=== PATIENT | female | born 1955 | race Caucasian/White ===

== ENCOUNTER 2016-05-30 07:32 | Inpatient (IN) | payer BC, OTHER ==
[2016-05-30 07:43] VITALS: BMI 35.2
[2016-05-30] MEDS ORDERED: HYDROCHLOROTHIAZIDE 12.5 MG CAPSULE (FP) PO ONE (08:02)
[2016-05-30] MEDS ORDERED: VALSARTAN 160 MG TABLET (UD) PO ONE (08:02)
--- NOTE | 2016-05-30 08:05 | PDOC ---
History of Present Illness - General Chief Complaint: Cold Symptoms Stated Complaint: CONGESTION Time Seen by Provider: 05/30/16 07:46 History Source: Patient Exam Limitations: No Limitations - History of Present Illness Initial Comments: 05/30/16 08:03 Patient is a 61 year old female with PMH of HTN, DM, HLD who presents to ED with cough for 1 week. Patient states she has multiple sick contacts in her home for the last few weeks. She developed a cough 1 week ago that has become productive with yellow-brown sputum. Coughing has become more frequent and the patient developed right sided chest pain that is entirely reproducible by movement, coughing & deep inspiration. Pain is intermittent and does not radiate. Patient also notes a mild fever 100.3, chills alongside some vomiting after heavy coughs. Denies diarrhea, constipation, abdominal pain. Denies shortness of breath or difficulty breathing. Denies flu shot this year and unsure about pneumonia vaccine. Past History - Travel Traveled outside of the country in the last 30 days: No Close contact w/someone who was outside of country & ill: No - Past Medical History Allergies/Adverse Reactions: Allergies Allergy/AdvReac Type Severity Reaction Status Date / Time No Known Allergies Allergy Verified 05/30/16 07:33 Home Medications: Ambulatory Orders Insulin Aspart Prot/Insuln Asp [Novolog Mix 70-30 Flexpen Syrn] 35 unit SQ BID 08/17/15 Insulin Glargine,Hum.rec.anlog [Toujeo Solostar] 110 unit SQ DAILY 08/17/15 Valsartan/Hydrochlorothiazide [Valsartan-Hctz 160-12.5 mg Tab] 1 each PO DAILY 08/18/15 Anemia: No Asthma: No Cancer: No Cardiac Disorders: Yes (ASHD, BASED ON CARDIAC CATH) CVA: No COPD: No CHF: No Dementia: No Diabetes: Yes (IDDM) GI Disorders: No Disorders: No HTN: Yes Hypercholesterolemia: Yes Liver Disease: No Seizures: No Thyroid Disease: No - Surgical History Appendectomy: Yes Orthopedic Surgery: Yes (RIGHT ANKLE FRACTURE SURGERY) - Family Disease History Comment:: 05/30/16 08:07 grandchildren & children sick at home also - Reproductive History LMP comment: 10+ years ago - Immunization History Immunization Up to Date: Yes (no flu) - Psycho/Social/Smoking Cessation Hx Anxiety: No Suicidal Ideation: No Smoking History: Former smoker Have you smoked in the past 12 months: No If you are a former smoker, when did you quit?: 2000 Information on smoking cessation initiated: No Hx Alcohol Use: No Drug/Substance Use Hx: No Substance Use Type: None Review of Systems - Review of Systems Able to Perform ROS?: Yes Is the patient limited Kazakh proficient: No Constitutional: Yes: Chills, Fever, Malaise. No: Night Sweats HEENTM: Yes: Nose Congestion. No: Blurred Vision, Ear Discharge, Throat Pain, Throat Swelling Respiratory: Yes: Productive cough. No: Shortness of Breath, SOB with Exertion , Wheezing, Hemoptysis Cardiac (ROS): Yes: Chest Tightness (with coughing). No: Irregular Heart Rate, Lightheadedness, Palpitations ABD/GI: Yes: Nausea, Vomiting. No: Abdominal Distended, Constipated, Diarrhea, Abdominal cramping : No: Burning, Dysuria, Incontinence Integumentary: No: Bruising, Change in Color, Erythema Neurological: No: Headache, Numbness, Paresthesia, Seizure, Unsteady Gait All Other Systems: Reviewed and Negative *Physical Exam - Vital Signs Last Vital Signs Temp Pulse Resp BP Pulse Ox 98.5 F 94 H 20 192/90 95 05/30/16 07:34 05/30/16 07:34 05/30/16 07:34 05/30/16 07:34 05/30/16 07:34 - Physical Exam General Appearance: Yes: Nourished, Appropriately Dressed, Obese HEENT: positive: EOMI, BREANNA, Normal ENT Inspection, Pharynx Normal Neck: positive: Trachea midline, Normal Thyroid, Supple Respiratory/Chest: positive: Chest Tender, Other (Coughing during examination, otherwise normal breath sounds without wheezing, crackles or stridor) Cardiovascular: positive: Regular Rhythm, Regular Rate, S1, S2 Gastrointestinal/Abdominal: positive: Normal Bowel Sounds, Flat, Soft Musculoskeletal: positive: Normal Inspection Extremity: positive: Normal Capillary Refill, Normal Inspection, Normal Range of Motion Integumentary: positive: Normal Color, Dry, Warm Neurologic: positive: nutrition internship II-XII NML intact, Fully Oriented, Alert, Normal Mood/ Affect, Motor Strength 5/5 Heart Score/ECG Review - History History: Slightly suspicious - Electrocardiogram EKG: Non specific repolarization disturbance - Age Age: 45-65 - Risk Factors Risk Factors Heart Score: Yes Hx Hypercholesterolemia, Yes Hx Hypertension, Yes Hx Diabetes Based on the list above the patient has:: >/=3 risk factors or Hx atherosclerotic disease - Troponin Troponin: </= normal limit - Score Heart Score - Total: 4 - ECG Impressions Normal ECG: No Comment:: 05/30/16 08:20 IMPRESSION: Normal Sinus Rhythm, Nonspecific Twave abnormality (by my read, T- wave inversion in inferolateral leads) ED Treatment Course - LABORATORY CBC & Chemistry Diagram: 05/30/16 08:40 05/30/16 08:40 - RADIOLOGY Radiology Studies Ordered: Category Date Time Status CXRPORT [CHEST X-RAY PORTABLE*] [RAD] Stat Radiology 05/30/16 07:52 Ordered Medical Decision Making - Medical Decision Making 05/30/16 08:11 Based on physical exam findings, suspect URI. Pneumonia, influenza, bronchitis on differential list. Ordered CBC, CMP, Influenza swab, cardiac profile, EKG & chest XRay. Patient hypertensive at present but states she forgot to take her antihypertensives last night. Will give Valsartan/HCTZ combo now and reassess. 05/30/16 08:22 Heart Score of 4. CURB65 score is 1. CXR shows RUL infiltrate. Will start patient on antibiotics & will likely require observation for multiple troponins. 05/30/16 10:11 Patient will likely need placement in observation for serial troponins. Will discuss case with Dr Rose. 05/30/16 10:[address] Lockett who agrees to place patient in Observation telemetry for serial troponins & continued antibiotic administration. *DC/Admit/Observation/Transfer Diagnosis at time of Disposition: Community acquired pneumonia - Discharge Dispostion Admit: Yes
--- NOTE | 2016-05-30 08:07 | PDOC ---
Attending Attestation - Resident Resident Name: Gil Monson - ED Attending Attestation I have performed the following: I have examined & evaluated the patient, The case was reviewed & discussed with the resident, I agree w/resident's findings & plan - HPI HPI: 05/30/16 08:06 61 year old female with PMH of HTN, DM, HLD. c/o cough for 1 week, and now with yellow-brown sputum Patient states she has multiple sick contacts in her home for the last few weeks. She developed a cough 1 week ago Did not have flu vaccine or pneumovax Patient has been having mid to right sided chest pain, which she states is worse with cough, musculoskeletal maneuvers, and deep inspiration - Physicial Exam PE: 05/30/16 08:27 Last Vital Signs Temp Pulse Resp BP Pulse Ox 98.5 F 94 H 20 192/90 95 05/30/16 07:34 05/30/16 07:34 05/30/16 07:34 05/30/16 07:34 05/30/16 07:34 Pt is alert and answering questions Lungs essentially clear with occ scant ronchi Cor RRR abd soft - Medical Decision Making 05/30/16 08:25 EKG Normal sinus rhythm 72, normal axis Normal AV and IV conduction time Normal QTC There are lateral inverted T waves in 1 and L V5 and V6 There is no old EKG available for comparison at this time Chest x-ray-as read by me Right-sided pneumonia 05/30/16 10:13 Laboratory Results - last 24 hr 05/30/16 05/30/16 05/30/16 08:40 08:40 08:40 WBC 12.2 H RBC 4.48 Hgb 11.1 Hct 34.7 MCV 77.3 L MCHC 32.2 RDW 15.7 H Plt Count 216 MPV 10.2 Neutrophils % 71.6 Lymphocytes % 18.8 Monocytes % 7.3 Eosinophils % 1.9 Basophils % 0.4 Sodium 139 Potassium 3.9 Chloride 103 Carbon Dioxide 27 Anion Gap 9 BUN 15 Creatinine 0.6 Creat Clearance w eGFR > 60 Random Glucose 204 H Lactic Acid 1.117 Calcium 8.5 Total Bilirubin 0.4 AST 17 ALT 29 Alkaline Phosphatase 105 Creatine Kinase 64 Troponin I < 0.02 Total Protein 7.2 Albumin 3.0 L Urine Color Urine Appearance Urine pH Ur Specific [place] Urine Protein Urine Glucose (UA) Urine Ketones Urine Blood Urine Nitrite Urine Bilirubin Urine Urobilinogen Ur Leukocyte Esterase Urine Other 05/30/16 09:06 WBC RBC Hgb Hct MCV MCHC RDW Plt Count MPV Neutrophils % Lymphocytes % Monocytes % Eosinophils % Basophils % Sodium Potassium Chloride Carbon Dioxide Anion Gap BUN Creatinine Creat Clearance w eGFR Random Glucose Lactic Acid Calcium Total Bilirubin AST ALT Alkaline Phosphatase Creatine Kinase Troponin I Total Protein Albumin Urine Color Lt. yellow Urine Appearance Clear Urine pH 6.0 Ur Specific [place] 1.010 Urine Protein 1+ H Urine Glucose (UA) Trace H Urine Ketones Negative Urine Blood Negative Urine Nitrite Negative Urine Bilirubin Negative Urine Urobilinogen 0.2 e.u/dl Ur Leukocyte Esterase Negative Urine Other Qns for micro Community-acquired pneumonia-will start coverage with Zithromax and Rocephin Abnormal EKG in diabetic hypertensive hyperlipidemic patient with multiple cardiac risk factors and heart score of 4 with musculoskeletal sounding chest pain Would place in observation for serial enzymes-no old EKG available for comparison at this time Heart Score/ECG Review - History History: Slightly suspicious - Electrocardiogram EKG: Non specific repolarization disturbance - Age Age: 45-65 - Risk Factors Risk Factors Heart Score: Yes Hx Hypercholesterolemia, Yes Hx Hypertension, Yes Hx Diabetes Based on the list above the patient has:: >/=3 risk factors or Hx atherosclerotic disease - Troponin Troponin: </= normal limit - Score Heart Score - Total: 4
[2016-05-30] MEDS ORDERED: AZITHROMYCIN IVPB 500 MG in DEXTROSE 5%-WATER - 250 ML IVPB ONE (08:25)
[2016-05-30] MEDS ORDERED: CEFTRIAXONE 1 GM in DEXTROSE 5%-WATER - 50 ML IVPB ONE (08:25)
[2016-05-30] MEDS ORDERED: HYDROCHLOROTHIAZIDE 25 MG TABLET (FP) ONE (08:36)
[2016-05-30] MEDS ORDERED: AZITHROMYCIN IVPB 250 ML IVPB ONE (08:36)
[2016-05-30] MEDS ORDERED: VALSARTAN 80 MG TABLET (UD) ONE (08:36)
[2016-05-30] MEDS ORDERED: CEFTRIAXONE 50 ML ONE (08:37)
[2016-05-30 09:09] LABS: BASOPHIL 0.4 % (0-2.0); EOSINOPHIL 1.9 % (0-4.5); MCH 24.9 pg (25.7-33.7); MCHC 32.2 g/dl (32.0-36.0); MEAN CELL VOLUME 77.3 fl (80-96); MEAN PLT VOLUME 10.2 fl (7.5-11.1); NEUTROPHILS 71.6 % (42.8-82.8); PLATELET COUNT 216 K/MM3 (134-434); RDW 15.7 % (11.6-15.6); WHITE BLOOD COUNT 12.2 K/mm3 (4.0-10.0)
[2016-05-30 09:16] LABS: ANION GAP 9 (8-16); BILIRUBIN,TOTAL 0.4 mg/dL (0.2-1.0); CALCIUM 8.5 mg/dL (8.5-10.1); CO2 27 mmol/L (21-32); CREATININE 0.6 mg/dL (0.55-1.02); GLUCOSE,RANDOM 204 mg/dL (74-106); SGOT/AST 17 U/L (15-37); SGPT/ALT 29 U/L (12-78); TOT PROT 7.2 g/dl (6.4-8.2)
[2016-05-30 09:18] LABS: ALK PHOS 105 U/L (45-117); TROPONIN I < 0.02 ng/ml (0.00-0.05)
[2016-05-30 09:42] LABS: URINE APPEARANCE CLEAR; URINE BILIRUBIN NEGATIVE (NEGATIVE); URINE BLOOD NEGATIVE (NEGATIVE); URINE COLOR LT. YELLOW; URINE GLUCOSE (UA) TRACE (NEGATIVE); URINE KETONE NEGATIVE (NEGATIVE); URINE LEUK ESTERASE NEGATIVE (NEGATIVE); URINE NITRITE NEGATIVE (NEGATIVE); URINE UROBILINOGEN 0.2 E.U/dl E.U./dl (0.2-1.0)
[2016-05-30 09:53] LABS: URINE PROTEIN 1+ (NEGATIVE)
--- NOTE | 2016-05-30 13:27 | HP ---
Admitting History and Physical - Primary Care Physician PCP: Endy Rob - Admission Chief Complaint: cough and chest pressure History of Present Illness: 05/30/16 08:03 Patient is a 61 year old female with PMH of HTN, DM, HLD who presents to ED with cough for 1 week. Patient states she has multiple sick contacts in her home for the last few weeks. She developed a cough 1 week ago that has become productive with yellow-brown sputum. Coughing has become more frequent and the patient developed right sided chest pain that is entirely reproducible by movement, coughing & deep inspiration. Pain is intermittent and does not radiate. Patient also notes a mild fever 100.3, chills alongside some vomiting after heavy coughs. Denies diarrhea, constipation, abdominal pain. Denies shortness of breath or difficulty breathing. Denies flu shot this year and unsure about pneumonia vaccine. per patient her daughter has cold at home and patient developed this cough and head congestion for last few days and when she cough her chest hurts and feels pressure,chest pain worse when she coughs she did not get her flu shot found to have elevated WBC in ER cxr shows infiltrate and got zithormax and rocephin History Source: Patient - Past Medical History Cardiovascular: Yes: HTN, Hyperlipdemia ...LMP Comment: 10+ years ago Endocrine: Yes: Diabetes Mellitus - Smoking History Smoking history: Former smoker Have you smoked in the past 12 months: No If you are a former smoker, when did you quit?: 2000 - Alcohol/Substance Use Hx Alcohol Use: No Home Medications - Allergies Allergies/Adverse Reactions: Allergies Allergy/AdvReac Type Severity Reaction Status Date / Time No Known Allergies Allergy Verified 05/30/16 07:33 - Home Medications Home Medications: Ambulatory Orders Insulin Aspart Prot/Insuln Asp [Novolog Mix 70-30 Flexpen Syrn] 35 unit SQ BID 08/17/15 Insulin Glargine,Hum.rec.anlog [Toujeo Solostar] 110 unit SQ DAILY 08/17/15 Valsartan/Hydrochlorothiazide [Valsartan-Hctz 160-12.5 mg Tab] 1 each PO DAILY 08/18/15 Review of Systems - Review of Systems HENT: reports: Nasal Congestion Cardiovascular: reports: Chest Pain (when cough) Respiratory: reports: Cough Physical Examination Vital Signs: Vital Signs Temperature 98.6 F 05/30/16 13:00 Pulse Rate 94 H 05/30/16 13:00 Respiratory Rate 20 05/30/16 13:00 Blood Pressure 156/87 05/30/16 13:00 O2 Sat by Pulse Oximetry (%) 95 05/30/16 13:00 Constitutional: Yes: Other (coughing) HENT: Yes: Other (no sinus tnederness) Cardiovascular: Yes: Regular Rate and Rhythm, S1, S2 Respiratory: Yes: Rhonchi (on rihgt) Gastrointestinal: Yes: Normal Bowel Sounds, Soft Edema: No Imaging - Results Chest X-ray: Report Reviewed (right upper lobe infiltrate) EKG: Report Reviewed (normal sinus rhytm) Problem List - Problems (1) Community acquired pneumonia Assessment/Plan: iv abx ID trend leukocyte count Code(s): J18.9 - PNEUMONIA, UNSPECIFIED ORGANISM (2) Chest tightness or pressure Assessment/Plan: cardio CE 3 sets EKG echo lipid profile Code(s): R07.89 - OTHER CHEST PAIN (3) Diabetes Assessment/Plan: bgm hga1c insulin Code(s): E11.9 - TYPE 2 DIABETES MELLITUS WITHOUT COMPLICATIONS Qualifiers: Diabetes mellitus type: type 2 (4) Post-nasal drip Assessment/Plan: nasal congestion antihistmine nasal spray Code(s): R09.82 - POSTNASAL DRIP
--- NOTE | 2016-05-30 16:28 | CON.CARD ---
Cardiology Consult (text) - Consultation Consultation Note: CC: CP 61 year old wit h/o HTN, HLD, non-obstructive CAD, IDDM who presents to ED with cough. + sick contacts 1 wk of cough productive of yellow-brown sputum. with occasional associated vomiting. + congestion, intermittent dyspnea. + fever 100.3, chills. Now new right sided chest pain with movement, coughing & deep inspiration. Pain is intermittent and does not radiate. Prior history of cardiac catheterization after stress testing --> non- obstructive disease. States that subsequent stress testing was normal. Hypertensive on arrival to ER, received home valsartan/hctz this morning. Received antibiotics in ER. No orthopnea, pnd, le edema, palps, dizziness, bleeding, claudication, transient neurologic symptoms. pmhx/pshx: per hpi social hx: former smoker, rare alcohol. no illicits. fam hx: brother with extensive CAD, stents and bypass ros: per hpi. no nausea, diarrhea, rashes, visual disturbances. Ambulatory Orders Insulin Aspart Prot/Insuln Asp [Novolog Mix 70-30 Flexpen Syrn] 35 unit SQ BID 08/17/15 Insulin Glargine,Hum.rec.anlog [Toujeo Solostar] 110 unit SQ DAILY 08/17/15 Valsartan/Hydrochlorothiazide [Valsartan-Hctz 160-12.5 mg Tab] 1 each PO DAILY 08/18/15 Current Medications Fluticasone Propionate (Flonase -) 1 spray NS BID YUNI Guaifenesin (Robitussin Dm -) 10 ml PO Q6H PRN PRN Reason: COUGH Azithromycin (Zithromax 500mg Ivpb (Pre-Docked)) 250 mls @ 250 mls/hr IVPB DAILY YUNI Ceftriaxone Sodium (Rocephin 1gm Ivpb (Pre-Docked)) 50 mls @ 100 mls/hr IVPB DAILY YUNI Insulin Aspart (Novolog Vial Sliding Scale -) 1 vial SQ ACHS YUNI PRN Reason: Protocol Loratadine (Claritin -) 10 mg PO DAILY YUNI Valsartan (Diovan -) 160 mg PO DAILY [facility] Vital Signs - 24 hr 05/30/16 05/30/16 05/30/16 07:34 11:31 13:00 Temperature 98.5 F 98.0 F 98.6 F Pulse Rate 94 H 89 94 H Respiratory 20 14 20 Rate Blood Pressure 192/90 164/85 156/87 O2 Sat by Pulse 95 97 95 Oximetry (%) Intake & Output 05/28/16 05/29/16 05/30/16 05/31/16 07:59 07:59 07:59 07:59 Intake Total 400 Balance 400 Weight 180 lb 180 lb NAD, calm JVD flat, neck supple CTAB, nl effort RRR nl s1 s2 no m/r/g chest discomfort reproducible to palpation of lateral right chest. + bs soft nt nd ext without e/c/c + dp/pt aaox3 no jaundice, diaphoresis CBC, BMP 05/30/16 08:40 05/30/16 08:40 Laboratory Tests 05/30/16 05/30/16 08:40 08:40 Lactic Acid 1.117 Total Bilirubin 0.4 AST 17 ALT 29 Alkaline Phosphatase 105 Troponin I < 0.02 Albumin 3.0 L EKG: NSR, borderline short pr interval. diffuse non-specific twave abnormality. tele: SR, sinus tach CXR: RUL infiltrate with thickening of right minor fissure. A/P 61 year old wit h/o HTN, HLD, non-obstructive CAD, IDDM who presents to ED with cough. CP/non-obstructive CAD - atypical for cardiac pain. Reproducible to palpation, more likely msk/pna. If second set of cardiac enzymes negative, no need for stress testing. Can follow up with outpatient logistics supervisor and reassess once acute infection resolves. - echo pending - Would start ASA, statin - bp control HTN - would give extra dose of valsartan tonight and reassess need for uptitration of regimen in the morning. Con't to monitor HL - statin as mentioned PNA - per pmd, id
[2016-05-30] MEDS: INSULIN SLIDING SCALE (NOVOLOG) 1 VIAL SQ SCH ×2 (17:01→21:42)
--- NOTE | 2016-05-30 17:24 | CONSULT ---
Consult Consult Specialty:: infectious diseases Reason for Consultation:: pneumonia,fever - History of Present Illness Chief Complaint: cough weakness and fever History of Present Illness: Patient is a 61 year old female with PMH of HTN, DM, HLD who got admitted for cough and fever according to the patient she has been coughing for some time and she developed fever and decided to come to the hospital patient has ahd multiple sick contacts and has not taken flu vaccine this year. patient mentions that her sputum is yellowish brown Denies any other symptoms patient was evalauted by cardio for chest pain she received abx in the ER currently patient feels well pmhx/pshx: per hpi social hx: former smoker fam hx: ros: per hpi also of note was that patient was intially hypertensive - History Source History Provided By: Patient Limitations to Obtaining History: No Limitations - Past Medical History Cardio/Vascular: Yes: HTN, Hyperlipdemia ...LMP Comment: 10+ years ago Endocrine: Yes: Diabetes Mellitus - Alcohol/Substance Use Hx Alcohol Use: No - Smoking History Smoking history: Former smoker Have you smoked in the past 12 months: No If you are a former smoker, when did you quit?: 2000 Home Medications - Allergies Allergies/Adverse Reactions: Allergies Allergy/AdvReac Type Severity Reaction Status Date / Time No Known Allergies Allergy Verified 05/30/16 07:33 - Home Medications Home Medications: Ambulatory Orders Insulin Aspart Prot/Insuln Asp [Novolog Mix 70-30 Flexpen Syrn] 35 unit SQ BID 08/17/15 Insulin Glargine,Hum.rec.anlog [Toujeo Solostar] 110 unit SQ DAILY 08/17/15 Valsartan/Hydrochlorothiazide [Valsartan-Hctz 160-12.5 mg Tab] 1 each PO DAILY 08/18/15 Review of Systems - Review of Systems Constitutional: reports: Fever, Weakness Eyes: reports: No Symptoms HENT: reports: No Symptoms Neck: reports: No Symptoms Cardiovascular: reports: Chest Pain Respiratory: reports: Cough, SOB on Exertion, Other Gastrointestinal: reports: No Symptoms Genitourinary: reports: No Symptoms Breasts: reports: No Symptoms Reported Musculoskeletal: reports: No Symptoms Integumentary: reports: No Symptoms Neurological: reports: No Symptoms Endocrine: reports: No Symptoms Hematology/Lymphatic: reports: No Symptoms Psychiatric: reports: No Symptoms Physical Exam Vital Signs: Vital Signs Temperature 98.6 F 05/30/16 13:00 Pulse Rate 94 H 05/30/16 13:00 Respiratory Rate 20 05/30/16 13:00 Blood Pressure 156/87 05/30/16 13:00 O2 Sat by Pulse Oximetry (%) 95 05/30/16 13:00 Constitutional: Yes: Obese Eyes: Yes: Conjunctiva Clear HENT: Yes: Atraumatic, Normocephalic Neck: Yes: Supple, Trachea Midline Cardiovascular: Yes: Regular Rate and Rhythm Respiratory: Yes: Regular, Poor Air Entry, Rhonchi Gastrointestinal: Yes: Normal Bowel Sounds, Soft Musculoskeletal: Yes: WNL Extremities: Yes: WNL Neurological: Yes: Alert, Oriented Psychiatric: Yes: Alert, Oriented Imaging - Results Chest X-ray: Report Reviewed, Image Reviewed Assessment/Plan after reviewing the patient and the history i think patient has pneumonia Problem List - Problems (1) Community acquired pneumonia Code(s): J18.9 - PNEUMONIA, UNSPECIFIED ORGANISM (2) Chest tightness or pressure Code(s): R07.89 - OTHER CHEST PAIN (3) Diabetes Code(s): E11.9 - TYPE 2 DIABETES MELLITUS WITHOUT COMPLICATIONS Qualifiers: Diabetes mellitus type: type 2 (4) Post-nasal drip Code(s): R09.82 - POSTNASAL DRIP leukocytosis pneumonia due to unknown organism patient has been started on ceftriaxone and zithro plan Agree with choice of abx if patient does not show improvement we will switch to unasyn hydraion monitor for fever thx for the consultation will follow with you
[2016-05-30 17:26] LABS: TROPONIN I < 0.02 ng/ml (0.00-0.05)
--- NOTE | 2016-05-30 17:26 | EKG ---
Test Reason : Blood Pressure : / mmHG Vent. Rate : 072 BPM Atrial Rate : 072 BPM P-R Int : 118 ms QRS Dur : 090 ms QT Int : 380 ms P-R-T Axes : 063 041 013 degrees QTc Int : 416 ms NORMAL SINUS RHYTHM NONSPECIFIC T WAVE ABNORMALITY ABNORMAL ECG WHEN COMPARED WITH ECG OF 04-FEB-2003 15:59, NONSPECIFIC T WAVE ABNORMALITY, WORSE IN LATERAL LEADS Confirmed by RONEL GIMENEZ, CATINA ([id number]) on 05/30/2016 5:25:56 PM Referred By: Confirmed By:CATINA RODNEY MD
[2016-05-30] MEDS ORDERED: VALSARTAN 80 MG TABLET (UD) PO ONE (18:49)
[2016-05-30] MEDS ORDERED: PT OWN MED DRAWER 7, Y5N ONE (21:29)
[2016-05-30] MEDS: FLUTICASONE PROP 0.05% 16 GM NASAL SPRAY NS SCH (21:39)
[2016-05-30] MEDS: guaiFENesin/D-METHORPHAN HB 10 ML UNIT-DOSE CUPS PO PRN (21:39)
[2016-05-30] MEDS: ATORVASTATIN CA 20 MG TABLET (FP) PO SCH (21:39)
[2016-05-31] MEDS: INSULIN SLIDING SCALE (NOVOLOG) 1 VIAL SQ SCH ×4 (06:37→21:11)
[2016-05-31] MEDS: guaiFENesin/D-METHORPHAN HB 10 ML UNIT-DOSE CUPS PO PRN ×2 (06:43→21:10)
--- NOTE | 2016-05-31 06:43 | PN ---
Progress Note, Physician Chief Complaint: NO COMPLAINTS - Current Medication List Current Medications: Active Medications Aspirin (Ecotrin -) 81 mg PO DAILY [facility] Atorvastatin Calcium (Lipitor -) 20 mg PO HS [facility] Last Admin: 05/30/16 21:39 Dose: 20 mg Fluticasone Propionate (Flonase -) 1 spray NS BID YUNI Last Admin: 05/30/16 21:39 Dose: 1 spray Guaifenesin (Robitussin Dm -) 10 ml PO Q6H PRN PRN Reason: COUGH Last Admin: 05/30/16 21:39 Dose: 10 ml Azithromycin (Zithromax 500mg Ivpb (Pre-Docked)) 250 mls @ 250 mls/hr IVPB DAILY [facility] Ceftriaxone Sodium (Rocephin 1gm Ivpb (Pre-Docked)) 50 mls @ 100 mls/hr IVPB DAILY [facility] Insulin Aspart (Novolog Vial Sliding Scale -) 1 vial SQ ACHS YUNI PRN Reason: Protocol Last Admin: 05/30/16 21:42 Dose: 6 units Loratadine (Claritin -) 10 mg PO DAILY [facility] Valsartan (Diovan -) 160 mg PO DAILY [facility] - Objective Vital Signs: Vital Signs Temperature 97.7 F 05/31/16 02:00 Pulse Rate 70 05/31/16 02:00 Respiratory Rate 22 05/31/16 02:00 Blood Pressure 150/81 05/31/16 02:00 O2 Sat by Pulse Oximetry (%) 95 05/30/16 21:00 Constitutional: Yes: Calm Eyes: Yes: PERRL HENT: Yes: Normocephalic Neck: Yes: Supple Cardiovascular: Yes: Regular Rate and Rhythm, S1, S2 Respiratory: Yes: CTA Bilaterally Gastrointestinal: Yes: Normal Bowel Sounds, Soft Edema: No Assessment/Plan (1) Community acquired pneumonia Assessment/Plan: iv abx ID ON CASE trend leukocyte count Code(s): J18.9 - PNEUMONIA, UNSPECIFIED ORGANISM (2) Chest tightness or pressure Assessment/Plan: cardio on case trop neg -> f/u echo pending lipid profile Code(s): R07.89 - OTHER CHEST PAIN (3) Diabetes Assessment/Plan: bgm hga1c insulin Code(s): E11.9 - TYPE 2 DIABETES MELLITUS WITHOUT COMPLICATIONS Qualifiers: Diabetes mellitus type: type 2 (4) Post-nasal drip Assessment/Plan: nasal congestion antihistmine nasal spray Code(s): R09.82 - 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
[2016-05-31] MEDS ORDERED: INSULIN (NOVOLOG) ASPART 100 UNITS/ML 10ML VIAL ONE ×2 (06:48→21:03)
[2016-05-31] MEDS ORDERED: PNEUMOC 13-VAL CONJ-DIP CRM/PF 0.5 ML DISP.SYRIN IM ONE (06:56)
[2016-05-31 07:09] LABS: MCH 24.9 pg (25.7-33.7); MCHC 32.3 g/dl (32.0-36.0); MEAN CELL VOLUME 77.1 fl (80-96); MEAN PLT VOLUME 10.2 fl (7.5-11.1); PLATELET COUNT 222 K/MM3 (134-434); RDW 15.5 % (11.6-15.6)
[2016-05-31 07:31] LABS: ALBUMIN 2.6 g/dl (3.4-5.0); ANION GAP 9 (8-16); CALCIUM 8.7 mg/dL (8.5-10.1); CHOLESTEROL 189 mg/dL (50-200); CO2 29 mmol/L (21-32); CREATININE 0.6 mg/dL (0.55-1.02); GLUCOSE,RANDOM 167 mg/dL (74-106); LDL CHOLESTEROL (ONLY SJRH) 140 mg/dL (5-100); MAGNESIUM 2.1 mg/dL (1.8-2.4); SGOT/AST 14 U/L (15-37); SGPT/ALT 25 U/L (12-78)
[2016-05-31 07:32] LABS: ALK PHOS 99 U/L (45-117); BILIRUBIN,TOTAL 0.3 mg/dL (0.2-1.0); TOT PROT 6.5 g/dl (6.4-8.2); TROPONIN I < 0.02 ng/ml (0.00-0.05)
[2016-05-31 07:43] LABS: TROPONIN I < 0.02 ng/ml (0.00-0.05)
[2016-05-31] MEDS ORDERED: PNEUMOCOCCAL 23 VACCINE 0.5 ML VIAL IM ONE (09:00)
[2016-05-31] MEDS ORDERED: PT OWN MED DRAWER 7, Y5N ONE ×3 (10:08→21:02)
[2016-05-31] MEDS: ASPIRIN COATED 81 MG TABLET.EC PO SCH (10:15)
[2016-05-31] MEDS: LORATADINE 10 MG TABLET PO SCH (10:15)
[2016-05-31] MEDS: VALSARTAN 160 MG TABLET (UD) PO SCH (10:16)
--- NOTE | 2016-05-31 10:16 | PN ---
Progress Note (short form) - Note Progress Note: s: cp with cough and deep breaths and palpation, little less today; still with cough/mild sob; no dizzy palps o: Vital Signs Period Temp Pulse Resp BP Sys/Karimi Pulse Ox Last 24 Hr 97.7 F-99.1 F 70-94 14-22 150-182/70-87 95-97 NAD, calm JVD flat, neck supple CTAB, nl effort RRR nl s1 s2 no m/r/g chest discomfort reproducible to palpation of lateral right chest. ext without e/c/c aaox3 no jaundice, diaphoresis Current Medications Generic Name Dose Route Start Last Admin Trade Name Freq PRN Reason Stop Dose Admin Aspirin 81 mg 05/31/16 10:00 Ecotrin - PO DAILY YUNI Atorvastatin Calcium 20 mg 05/30/16 22:00 05/30/16 21:39 Lipitor - PO 20 mg HS YUNI Administration Fluticasone Propionate 1 spray 05/30/16 22:00 05/30/16 21:39 Flonase - NS 1 spray BID YUNI Administration Guaifenesin 10 ml 05/30/16 15:34 05/31/16 06:43 Robitussin Dm - PO 10 ml Q6H PRN Administration COUGH Azithromycin 250 mls @ 250 mls/hr 05/31/16 10:00 Zithromax 500mg Ivpb (Pre-Docked) IVPB DAILY [facility] Ceftriaxone Sodium 50 mls @ 100 mls/hr 05/31/16 10:00 Rocephin 1gm Ivpb (Pre-Docked) IVPB DAILY [facility] Insulin Aspart 1 vial 05/30/16 16:30 05/31/16 06:37 Novolog Vial Sliding Scale - SQ Not Given ACHS [facility] Protocol Loratadine 10 mg 05/31/16 10:00 Claritin - PO DAILY YUNI Valsartan 160 mg 05/31/16 10:00 Diovan - PO DAILY [facility] CBC, BMP 05/31/16 05:35 05/31/16 05:35 EKG: NSR, borderline short pr interval. diffuse non-specific twave abnormality. tele: SR CXR: RUL infiltrate with thickening of right minor fissure. echo 05/2016: tds; nl lv/rv, no sig valve path A/P 61 year old wit h/o HTN, HLD, non-obstructive CAD, IDDM who presents to ED with cough. CP/non-obstructive CAD: - atypical for cardiac pain. Reproducible to palpation, more likely msk/pna. - ce's neg x3 and echo and tele unremarkable - f/u with outpatient golf ball trimmer and reassess once acute infection resolves. HTN - monitor on current meds HL - cont statin PNA - per pmd, id can dc tele
[2016-05-31] MEDS: FLUTICASONE PROP 0.05% 16 GM NASAL SPRAY NS SCH ×2 (10:27→21:10)
[2016-05-31] MEDS: CEFTRIAXONE 50 ML IVPB SCH (10:28)
[2016-05-31] MEDS: AZITHROMYCIN IVPB 250 ML IVPB SCH (10:28)
--- NOTE | 2016-05-31 17:42 | PN ---
Progress Note, Physician History of Present Illness: patient feeling better breathing better - Current Medication List Current Medications: Active Medications Aspirin (Ecotrin -) 81 mg PO DAILY [facility] Last Admin: 05/31/16 10:15 Dose: 81 mg Atorvastatin Calcium (Lipitor -) 20 mg PO HS [facility] Last Admin: 05/30/16 21:39 Dose: 20 mg Fluticasone Propionate (Flonase -) 1 spray NS BID [facility] Last Admin: 05/31/16 10:27 Dose: 1 spray Guaifenesin (Robitussin Dm -) 10 ml PO Q6H PRN PRN Reason: COUGH Last Admin: 05/31/16 06:43 Dose: 10 ml Azithromycin (Zithromax 500mg Ivpb (Pre-Docked)) 250 mls @ 250 mls/hr IVPB DAILY [facility] Last Admin: 05/31/16 10:28 Dose: 250 mls/hr Ceftriaxone Sodium (Rocephin 1gm Ivpb (Pre-Docked)) 50 mls @ 100 mls/hr IVPB DAILY [facility] Last Admin: 05/31/16 10:28 Dose: 100 mls/hr Insulin Aspart (Novolog Vial Sliding Scale -) 1 vial SQ ACHS [facility] PRN Reason: Protocol Last Admin: 05/31/16 12:23 Dose: 6 units Loratadine (Claritin -) 10 mg PO DAILY [facility] Last Admin: 05/31/16 10:15 Dose: 10 mg Valsartan (Diovan -) 160 mg PO DAILY [facility] Last Admin: 05/31/16 10:16 Dose: 160 mg - Objective Vital Signs: Vital Signs Temperature 98.7 F 05/31/16 14:00 Pulse Rate 82 05/31/16 14:00 Respiratory Rate 20 05/31/16 14:00 Blood Pressure 142/70 05/31/16 14:00 O2 Sat by Pulse Oximetry (%) 95 05/31/16 09:00 Constitutional: Yes: No Distress, Calm Cardiovascular: Yes: Regular Rate and Rhythm Respiratory: Yes: Regular, Poor Air Entry Gastrointestinal: Yes: Normal Bowel Sounds, Soft Musculoskeletal: Yes: WNL Extremities: Yes: WNL Neurological: Yes: Alert, Oriented Psychiatric: Yes: Alert Labs: CBC, BMP 05/31/16 05:35 05/31/16 05:35 Assessment/Plan after reviewing the patient and the history i think patient has pneumonia Problem List - Problems (1) Community acquired pneumonia Code(s): J18.9 - PNEUMONIA, UNSPECIFIED ORGANISM (2) Chest tightness or pressure Code(s): R07.89 - OTHER CHEST PAIN (3) Diabetes Code(s): E11.9 - TYPE 2 DIABETES MELLITUS WITHOUT COMPLICATIONS Qualifiers: Diabetes mellitus type: type 2 (4) Post-nasal drip Code(s): R09.82 - POSTNASAL DRIP leukocytosis pneumonia due to unknown organism patient has been started on ceftriaxone and zithro plan continues current mgmt rest as per primary
[2016-05-31] MEDS: ATORVASTATIN CA 20 MG TABLET (FP) PO SCH (21:10)
[2016-06-01] MEDS ORDERED: PT OWN MED DRAWER 7, Y5N ONE ×5 (02:08→22:37)
[2016-06-01] MEDS: INSULIN SLIDING SCALE (NOVOLOG) 1 VIAL SQ SCH ×4 (06:19→21:44)
[2016-06-01] MEDS ORDERED: INSULIN (NOVOLOG) ASPART 100 UNITS/ML 10ML VIAL ONE ×4 (06:50→21:29)
[2016-06-01 07:31] LABS: BASOPHIL 0.7 % (0-2.0); EOSINOPHIL 2.8 % (0-4.5); MCH 25.1 pg (25.7-33.7); MCHC 32.5 g/dl (32.0-36.0); MEAN CELL VOLUME 77.1 fl (80-96); MEAN PLT VOLUME 10.1 fl (7.5-11.1); NEUTROPHILS 63.3 % (42.8-82.8); PLATELET COUNT 244 K/MM3 (134-434); RDW 15.4 % (11.6-15.6); WHITE BLOOD COUNT 9.7 K/mm3 (4.0-10.0)
[2016-06-01 07:50] LABS: ALBUMIN 2.8 g/dl (3.4-5.0); ANION GAP 10 (8-16); CALCIUM 8.6 mg/dL (8.5-10.1); CO2 28 mmol/L (21-32); GLUCOSE,RANDOM 285 mg/dL (74-106)
[2016-06-01 07:53] LABS: ALK PHOS 99 U/L (45-117); BILIRUBIN,TOTAL 0.3 mg/dL (0.2-1.0); CREATININE 0.7 mg/dL (0.55-1.02); SGOT/AST 16 U/L (15-37); SGPT/ALT 31 U/L (12-78)
[2016-06-01] MEDS: LORATADINE 10 MG TABLET PO SCH (09:32)
[2016-06-01] MEDS: ASPIRIN COATED 81 MG TABLET.EC PO SCH (09:32)
[2016-06-01] MEDS: CEFTRIAXONE 50 ML IVPB SCH (09:32)
[2016-06-01] MEDS: VALSARTAN 160 MG TABLET (UD) PO SCH (09:32)
[2016-06-01] MEDS: AZITHROMYCIN IVPB 250 ML IVPB SCH (09:32)
[2016-06-01] MEDS: FLUTICASONE PROP 0.05% 16 GM NASAL SPRAY NS SCH ×2 (09:43→21:22)
[2016-06-01] MEDS: guaiFENesin/D-METHORPHAN HB 10 ML UNIT-DOSE CUPS PO PRN (09:45)
--- NOTE | 2016-06-01 10:49 | PN ---
Progress Note, Physician Chief Complaint: NO COMPLAINTS SITTING COMFORTABLY AT BEDSIDE TALKING TO VISITOR - Current Medication List Current Medications: Active Medications Aspirin (Ecotrin -) 81 mg PO DAILY [facility] Last Admin: 06/01/16 09:32 Dose: 81 mg Atorvastatin Calcium (Lipitor -) 20 mg PO HS [facility] Last Admin: 05/31/16 21:10 Dose: 20 mg Fluticasone Propionate (Flonase -) 1 spray NS BID [facility] Last Admin: 06/01/16 09:43 Dose: 1 spray Guaifenesin (Robitussin Dm -) 10 ml PO Q6H PRN PRN Reason: COUGH Last Admin: 06/01/16 09:45 Dose: 10 ml Azithromycin (Zithromax 500mg Ivpb (Pre-Docked)) 250 mls @ 250 mls/hr IVPB DAILY [facility] Last Admin: 06/01/16 09:32 Dose: 250 mls/hr Ceftriaxone Sodium (Rocephin 1gm Ivpb (Pre-Docked)) 50 mls @ 100 mls/hr IVPB DAILY [facility] Last Admin: 06/01/16 09:32 Dose: 100 mls/hr Insulin Aspart (Novolog Vial Sliding Scale -) 1 vial SQ ACHS [facility] PRN Reason: Protocol Last Admin: 06/01/16 06:19 Dose: 4 units Loratadine (Claritin -) 10 mg PO DAILY [facility] Last Admin: 06/01/16 09:32 Dose: 10 mg Valsartan (Diovan -) 160 mg PO DAILY [facility] Last Admin: 06/01/16 09:32 Dose: 160 mg - Objective Vital Signs: Vital Signs Temperature 97.8 F 06/01/16 06:17 Pulse Rate 76 06/01/16 06:17 Respiratory Rate 16 06/01/16 06:17 Blood Pressure 159/79 06/01/16 06:17 O2 Sat by Pulse Oximetry (%) 95 05/31/16 21:00 Cardiovascular: Yes: WNL Respiratory: Yes: WNL Gastrointestinal: Yes: WNL Edema: No Labs: CBC, BMP 06/01/16 06:00 06/01/16 06:00 Problem List - Problems (1) Chest tightness or pressure Code(s): R07.89 - OTHER CHEST PAIN (2) Community acquired pneumonia Code(s): J18.9 - PNEUMONIA, UNSPECIFIED ORGANISM (3) Diabetes Code(s): E11.9 - TYPE 2 DIABETES MELLITUS WITHOUT COMPLICATIONS Qualifiers: Diabetes mellitus type: type 2 (4) Post-nasal drip Code(s): R09.82 - POSTNASAL DRIP Assessment/Plan (1) Community acquired pneumonia Assessment/Plan: iv abx ID ON CASE Code(s): J18.9 - PNEUMONIA, UNSPECIFIED ORGANISM (2) Chest tightness or pressure Assessment/Plan: cardio on case no acs echo unremarkable lipid profile Code(s): R07.89 - OTHER CHEST PAIN (3) Diabetes Assessment/Plan: bgm hga1c 10.1 -> endo consult - levemir Code(s): E11.9 - TYPE 2 DIABETES MELLITUS WITHOUT COMPLICATIONS Qualifiers: Diabetes mellitus type: type 2 (4) Post-nasal drip Assessment/Plan: nasal congestion antihistmine nasal spray Code(s): R09.82 - POSTNASAL DRIP [employer]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
[2016-06-01] MEDS ORDERED: INSULIN DETEMIR 100 UNITS/ML MDV SQ SCH (11:00)
--- NOTE | 2016-06-01 12:45 | PN ---
Progress Note (short form) - Note Progress Note: CC: CP s: cp with cough and deep breaths and palpation resolved; still with cough no dizzy palps, sob. ambulating. o: Current Medications Aspirin (Ecotrin -) 81 mg PO DAILY [facility] Last Admin: 06/01/16 09:32 Dose: 81 mg Atorvastatin Calcium (Lipitor -) 20 mg PO HS [facility] Last Admin: 05/31/16 21:10 Dose: 20 mg Fluticasone Propionate (Flonase -) 1 spray NS BID [facility] Last Admin: 06/01/16 09:43 Dose: 1 spray Guaifenesin (Robitussin Dm -) 10 ml PO Q6H PRN PRN Reason: COUGH Last Admin: 06/01/16 09:45 Dose: 10 ml Azithromycin (Zithromax 500mg Ivpb (Pre-Docked)) 250 mls @ 250 mls/hr IVPB DAILY [facility] Last Admin: 06/01/16 09:32 Dose: 250 mls/hr Ceftriaxone Sodium (Rocephin 1gm Ivpb (Pre-Docked)) 50 mls @ 100 mls/hr IVPB DAILY [facility] Last Admin: 06/01/16 09:32 Dose: 100 mls/hr Insulin Aspart (Novolog Vial Sliding Scale -) 1 vial SQ ACHS [facility] PRN Reason: Protocol Last Admin: 06/01/16 12:34 Dose: 6 units Insulin Detemir (Levemir Vial) 10 units SQ BIDAC [facility] Last Admin: 06/01/16 12:34 Dose: 10 units Loratadine (Claritin -) 10 mg PO DAILY [facility] Last Admin: 06/01/16 09:32 Dose: 10 mg Valsartan (Diovan -) 160 mg PO DAILY [facility] Last Admin: 06/01/16 09:32 Dose: 160 mg Vital Signs - 24 hr 05/31/16 05/31/16 05/31/16 14:00 18:00 21:00 Temperature 98.7 F 98.7 F Pulse Rate 82 81 Respiratory 20 20 16 Rate Blood Pressure 142/70 164/90 O2 Sat by Pulse 95 Oximetry (%) 05/31/16 06/01/16 06/01/16 21:15 06:17 09:00 Temperature 98.1 F 97.8 F Pulse Rate 80 76 80 Respiratory 16 16 18 Rate Blood Pressure 164/77 159/79 139/74 O2 Sat by Pulse Oximetry (%) 06/01/16 10:00 Temperature Pulse Rate Respiratory 16 Rate Blood Pressure O2 Sat by Pulse 96 Oximetry (%) Intake & Output 05/30/16 05/31/16 06/01/16 06/02/16 07:59 07:59 07:59 07:59 Intake Total 950 400 375 Balance 950 400 375 Weight 180 lb 180 lb NAD, calm JVD flat, neck supple CTAB, nl effort RRR nl s1 s2 no m/r/g ext without e/c/c aaox3 no jaundice, diaphoresis CBC, BMP 06/01/16 06:00 06/01/16 06:00 Laboratory Tests 06/01/16 06:00 Total Bilirubin 0.3 AST 16 ALT 31 D Alkaline Phosphatase 99 Albumin 2.8 L EKG: NSR, borderline short pr interval. diffuse non-specific twave abnormality. prior tele: SR CXR: RUL infiltrate with thickening of right minor fissure. echo 05/2016: tds; nl lv/rv, no sig valve path A/P 61 year old wit h/o HTN, HLD, non-obstructive CAD, IDDM who presents to ED with cough. CP/non-obstructive CAD: - atypical for cardiac pain. Reproducible to palpation, more likely msk/pna. - ce's neg x3 and echo and tele unremarkable - f/u with outpatient audit manager and reassess once acute infection resolves. - con't statin, asa HTN - still slightly elevated. Would resume thiazide diuretic at higher dose: chlorthalidone 25 mg/day. HL - cont statin PNA - per pmd, id
--- NOTE | 2016-06-01 15:30 | CONSULT ---
Consult Consult Specialty:: endocrine Referred by:: Reason for Consultation:: diabetes mellitus - History of Present Illness Chief Complaint: high sugars History of Present Illness: 61 year old female with PMH of HTN, DM, HLD who presents to ED with cough for 1 week. Patient states she has multiple sick contacts in her home for the last few weeks. She developed a cough 1 week ago that has become productive with yellow-brown sputum. Coughing has become more frequent and the patient developed right sided chest pain that is entirely reproducible by movemen has elevated bs despite taking insulin,denies low sugars,or blurred vision - History Source History Provided By: Patient - Past Medical History Cardio/Vascular: Yes: HTN, Hyperlipdemia ...LMP Comment: 10+ years ago Endocrine: Yes: Diabetes Mellitus - Alcohol/Substance Use Hx Alcohol Use: No - Smoking History Smoking history: Former smoker Have you smoked in the past 12 months: No If you are a former smoker, when did you quit?: 2000 Home Medications - Allergies Allergies/Adverse Reactions: Allergies Allergy/AdvReac Type Severity Reaction Status Date / Time No Known Allergies Allergy Verified 05/30/16 07:33 - Home Medications Home Medications: Ambulatory Orders Insulin Aspart Prot/Insuln Asp [Novolog Mix 70-30 Flexpen Syrn] 35 unit SQ BID 08/17/15 Insulin Glargine,Hum.rec.anlog [Toujeo Solostar] 110 unit SQ DAILY 08/17/15 Valsartan/Hydrochlorothiazide [Valsartan-Hctz 160-12.5 mg Tab] 1 each PO DAILY 08/18/15 Review of Systems - Review of Systems Constitutional: reports: Unintentional Wgt. Loss, Weakness Eyes: reports: No Symptoms HENT: reports: No Symptoms Neck: reports: No Symptoms Cardiovascular: reports: No Symptoms Respiratory: reports: Cough Gastrointestinal: reports: No Symptoms Genitourinary: reports: No Symptoms Breasts: reports: No Symptoms Reported Musculoskeletal: reports: Muscle Cramps Integumentary: reports: No Symptoms Neurological: reports: No Symptoms Endocrine: reports: No Symptoms Hematology/Lymphatic: reports: No Symptoms Physical Exam Vital Signs: Vital Signs Temperature 97.8 F 06/01/16 06:17 Pulse Rate 80 06/01/16 09:00 Respiratory Rate 16 06/01/16 10:00 Blood Pressure 139/74 06/01/16 09:00 O2 Sat by Pulse Oximetry (%) 96 06/01/16 10:00 Constitutional: Yes: Anxious Eyes: Yes: EOM Intact HENT: Yes: Normocephalic Neck: Yes: Trachea Midline Cardiovascular: Yes: Tachycardia Respiratory: Yes: Rhonchi, SOB on Exertion Gastrointestinal: Yes: Normal Bowel Sounds ...Rectal Exam: Yes: Deferred Renal/: Yes: WNL Breast(s): Yes: WNL Musculoskeletal: Yes: WNL Extremities: Yes: WNL Labs: CBC, BMP 06/01/16 06:00 06/01/16 06:00 Problem List - Problems (1) Chest tightness or pressure Code(s): R07.89 - OTHER CHEST PAIN (2) Community acquired pneumonia Code(s): J18.9 - PNEUMONIA, UNSPECIFIED ORGANISM (3) Diabetes Code(s): E11.9 - TYPE 2 DIABETES MELLITUS WITHOUT COMPLICATIONS Qualifiers: Diabetes mellitus type: type 2 (4) Post-nasal drip Code(s): R09.82 - POSTNASAL DRIP (5) Type 2 diabetes mellitus with autonomic neuropathy Code(s): E11.43 - TYPE 2 DIABETES W DIABETIC AUTONOMIC (POLY)NEUROPATHY Assessment/Plan Current Active Problems Chest tightness or pressure (Acute) Community acquired pneumonia (Acute) Diabetes (Acute) Post-nasal drip (Acute) diabetes mellitus neuropathy Laboratory Results - last 24 hr 05/31/16 05/31/16 06/01/16 17:16 20:52 05:53 WBC RBC Hgb Hct MCV MCHC RDW Plt Count MPV Neutrophils % Lymphocytes % Monocytes % Eosinophils % Basophils % Sodium Potassium Chloride Carbon Dioxide Anion Gap BUN Creatinine Creat Clearance w eGFR POC Glucometer 314 398 287 Random Glucose Calcium Total Bilirubin AST ALT Alkaline Phosphatase Total Protein Albumin 06/01/16 06/01/16 06/01/16 06:00 06:00 12:27 WBC 9.7 RBC 4.71 Hgb 11.8 Hct 36.3 MCV 77.1 L MCHC 32.5 RDW 15.4 Plt Count 244 MPV 10.1 Neutrophils % 63.3 Lymphocytes % 25.3 D Monocytes % 7.9 Eosinophils % 2.8 Basophils % 0.7 Sodium 139 Potassium 4.5 Chloride 101 Carbon Dioxide 28 Anion Gap 10 BUN 17 Creatinine 0.7 Creat Clearance w eGFR > 60 POC Glucometer 321 Random Glucose 285 H D Calcium 8.6 Total Bilirubin 0.3 AST 16 ALT 31 D Alkaline Phosphatase 99 Total Protein 7.0 Albumin 2.8 L Current Medications Generic Name Dose Route Start Last Admin Trade Name Fletcherq PRN Reason Stop Dose Admin Aspirin 81 mg 05/31/16 10:00 06/01/16 09:32 Ecotrin - PO 81 mg DAILY [facility] Administration Atorvastatin Calcium 20 mg 05/30/16 22:00 05/31/16 21:10 Lipitor - PO 20 mg HS [facility]I Administration Chlorthalidone 25 mg 06/01/16 13:00 [place] - PO DAILY [facility]I Fluticasone Propionate 1 spray 05/30/16 22:00 06/01/16 09:43 Flonase - NS 1 spray BID [facility]I Administration Guaifenesin 10 ml 05/30/16 15:34 06/01/16 09:45 Robitussin Dm - PO 10 ml Q6H PRN Administration COUGH Azithromycin 250 mls @ 250 mls/hr 05/31/16 10:00 06/01/16 09:32 Zithromax 500mg Ivpb (Pre-Docked) IVPB 250 mls/hr DAILY [facility] Administration Ceftriaxone Sodium 50 mls @ 100 mls/hr 05/31/16 10:00 06/01/16 09:32 Rocephin 1gm Ivpb (Pre-Docked) IVPB 100 mls/hr DAILY [facility] Administration Insulin Aspart 1 vial 05/30/16 16:30 06/01/16 12:34 Novolog Vial Sliding Scale - SQ 6 units ACHS [facility]I Administration Protocol Insulin Detemir 10 units 06/01/16 11:00 06/01/16 12:34 Levemir Vial SQ 10 units BIDAC [facility]I Administration Loratadine 10 mg 05/31/16 10:00 06/01/16 09:32 Claritin - PO 10 mg DAILY [facility] Administration Valsartan 160 mg 05/31/16 10:00 06/01/16 09:32 Diovan - PO 160 mg DAILY [facility] Administration plan; levemir 20 units bid novolg ss coverage diet consult follow up for tight controll sugars
[2016-06-01] MEDS: CHLORTHALIDONE 25 MG TABLET PO SCH (17:00)
[2016-06-01] MEDS: INSULIN DETEMIR 100 UNITS/ML MDV SQ SCH (17:01)
--- NOTE | 2016-06-01 18:14 | PN ---
Progress Note, Physician History of Present Illness: patient doing much better no complaints breathing much better - Current Medication List Current Medications: Active Medications Aspirin (Ecotrin -) 81 mg PO DAILY [facility] Last Admin: 06/01/16 09:32 Dose: 81 mg Atorvastatin Calcium (Lipitor -) 20 mg PO HS [facility] Last Admin: 05/31/16 21:10 Dose: 20 mg Chlorthalidone (Hygroton -) 25 mg PO DAILY [facility] Last Admin: 06/01/16 17:00 Dose: 25 mg Fluticasone Propionate (Flonase -) 1 spray NS BID [facility] Last Admin: 06/01/16 09:43 Dose: 1 spray Guaifenesin (Robitussin Dm -) 10 ml PO Q6H PRN PRN Reason: COUGH Last Admin: 06/01/16 09:45 Dose: 10 ml Azithromycin (Zithromax 500mg Ivpb (Pre-Docked)) 250 mls @ 250 mls/hr IVPB DAILY [facility] Last Admin: 06/01/16 09:32 Dose: 250 mls/hr Ceftriaxone Sodium (Rocephin 1gm Ivpb (Pre-Docked)) 50 mls @ 100 mls/hr IVPB DAILY [facility] Last Admin: 06/01/16 09:32 Dose: 100 mls/hr Insulin Aspart (Novolog Vial Sliding Scale -) 1 vial SQ ACHS [facility] PRN Reason: Protocol Last Admin: 06/01/16 17:01 Dose: 6 units Insulin Detemir (Levemir Vial) 20 units SQ BIDAC [facility] Last Admin: 06/01/16 17:01 Dose: 20 units Loratadine (Claritin -) 10 mg PO DAILY [facility] Last Admin: 06/01/16 09:32 Dose: 10 mg Valsartan (Diovan -) 160 mg PO DAILY [facility] Last Admin: 06/01/16 09:32 Dose: 160 mg - Objective Vital Signs: Vital Signs Temperature 98.3 F 06/01/16 14:30 Pulse Rate 82 06/01/16 14:30 Respiratory Rate 16 06/01/16 14:30 Blood Pressure 169/78 06/01/16 14:30 O2 Sat by Pulse Oximetry (%) 96 06/01/16 10:00 Constitutional: Yes: No Distress, Calm, Obese Cardiovascular: Yes: Regular Rate and Rhythm Respiratory: Yes: Regular, CTA Bilaterally Gastrointestinal: Yes: Normal Bowel Sounds, Soft Musculoskeletal: Yes: WNL Extremities: Yes: WNL Neurological: Yes: Alert, Oriented Psychiatric: Yes: Alert Labs: CBC, BMP 06/01/16 06:00 06/01/16 06:00 Assessment/Plan after reviewing the patient and the history i think patient has pneumonia Problem List - Problems (1) Community acquired pneumonia Code(s): J18.9 - PNEUMONIA, UNSPECIFIED ORGANISM (2) Chest tightness or pressure Code(s): R07.89 - OTHER CHEST PAIN (3) Diabetes Code(s): E11.9 - TYPE 2 DIABETES MELLITUS WITHOUT COMPLICATIONS Qualifiers: Diabetes mellitus type: type 2 (4) Post-nasal drip Code(s): R09.82 - POSTNASAL DRIP leukocytosis pneumonia due to unknown organism patient has been started on ceftriaxone and zithro plan continues current mgmt rest as per primary will switch to oral abx tomorrow can switch to augmentin 500mg twice a day will need for another 3 days and zithro for a total of 5 days
[2016-06-01] MEDS: ATORVASTATIN CA 20 MG TABLET (FP) PO SCH (21:22)
[2016-06-02 00:43] VITALS: TEMP 98
[2016-06-02] MEDS ORDERED: INSULIN (NOVOLOG) ASPART 100 UNITS/ML 10ML VIAL ONE ×2 (04:14→12:37)
[2016-06-02 05:43] VITALS: BP 147/65; PULSE 79
[2016-06-02] MEDS: INSULIN SLIDING SCALE (NOVOLOG) 1 VIAL SQ SCH ×2 (06:48→12:39)
[2016-06-02] MEDS: INSULIN DETEMIR 100 UNITS/ML MDV SQ SCH (06:49)
[2016-06-02 08:25] LABS: ALBUMIN 3.2 g/dl (3.4-5.0); ALK PHOS 108 U/L (45-117); ANION GAP 11 (8-16); BILIRUBIN,TOTAL 0.4 mg/dL (0.2-1.0); CALCIUM 9.1 mg/dL (8.5-10.1); CO2 29 mmol/L (21-32); CREATININE 0.7 mg/dL (0.55-1.02); GLUCOSE,RANDOM 285 mg/dL (74-106); SGOT/AST 15 U/L (15-37); SGPT/ALT 32 U/L (12-78); TOT PROT 7.6 g/dl (6.4-8.2)
[2016-06-02 08:42] LABS: BASOPHIL 0.7 % (0-2.0); EOSINOPHIL 2.3 % (0-4.5); MCH 24.6 pg (25.7-33.7); MCHC 32.1 g/dl (32.0-36.0); MEAN CELL VOLUME 76.7 fl (80-96); MEAN PLT VOLUME 10.1 fl (7.5-11.1); NEUTROPHILS 64.2 % (42.8-82.8); PLATELET COUNT 273 K/MM3 (134-434); RDW 15.8 % (11.6-15.6); WHITE BLOOD COUNT 11.2 K/mm3 (4.0-10.0)
[2016-06-02] MEDS ORDERED: PT OWN MED DRAWER 7, Y5N ONE (08:42)
--- NOTE | 2016-06-02 08:42 | DS ---
Physical Examination Vital Signs: Vital Signs Temperature 98.0 F 06/02/16 05:41 Pulse Rate 79 06/02/16 05:41 Respiratory Rate 18 06/02/16 05:41 Blood Pressure 147/65 06/02/16 05:41 O2 Sat by Pulse Oximetry (%) 99 06/01/16 22:00 Constitutional: Yes: Calm Cardiovascular: Yes: Regular Rate and Rhythm, S1, S2 Respiratory: Yes: CTA Bilaterally Gastrointestinal: Yes: Normal Bowel Sounds, Soft Edema: No Labs: CBC, BMP 06/02/16 06:00 Discharge Summary Reason For Visit: COMMUNITY ACQUIRED PNEUMONIA Current Active Problems Chest tightness or pressure (Acute) Community acquired pneumonia (Acute) Diabetes (Acute) Post-nasal drip (Acute) Type 2 diabetes mellitus with autonomic neuropathy (Acute) Hospital Course: (1) Community acquired pneumonia Assessment/Plan: iv abx -> po augmentin 500mg twice a day will need for another 3 days and zithro for a total of 5 days ID ON CASE Code(s): J18.9 - PNEUMONIA, UNSPECIFIED ORGANISM (2) Chest tightness or pressure Assessment/Plan: cardio on case no acs echo unremarkable lipid profile Code(s): R07.89 - OTHER CHEST PAIN (3) Diabetes Assessment/Plan: bgm hga1c 10.1 endo consult appreciated levemir increased improving -> will f/u pcp as outpt for monitoring Code(s): E11.9 - TYPE 2 DIABETES MELLITUS WITHOUT COMPLICATIONS Qualifiers: Diabetes mellitus type: type 2 (4) Post-nasal drip Assessment/Plan: nasal congestion antihistmine nasal spray Code(s): R09.82 - POSTNASAL DRIP DISCHARGE MONITOR BLOOD SUGAR FOR TODAY CHON GARRETT - Instructions Referrals: Endy Rob [Primary Care Provider] - Disposition: HOME - Home Medications Comprehensive Discharge Medication List: Ambulatory Orders Insulin Aspart Prot/Insuln Asp [Novolog Mix 70-30 Flexpen Syrn] 35 unit SQ BID 08/17/15 Insulin Glargine,Hum.rec.anlog [Toujeo Solostar] 110 unit SQ DAILY 08/17/15 Valsartan/Hydrochlorothiazide [Valsartan-Hctz 160-12.5 mg Tab] 1 each PO DAILY 08/18/15
[2016-06-02] MEDS: LORATADINE 10 MG TABLET PO SCH (09:12)
[2016-06-02] MEDS: FLUTICASONE PROP 0.05% 16 GM NASAL SPRAY NS SCH (09:13)
[2016-06-02] MEDS: AZITHROMYCIN IVPB 250 ML IVPB SCH (09:13)
[2016-06-02] MEDS: ASPIRIN COATED 81 MG TABLET.EC PO SCH (09:13)
[2016-06-02] MEDS: VALSARTAN 160 MG TABLET (UD) PO SCH (09:13)
[2016-06-02] MEDS: CEFTRIAXONE 50 ML IVPB SCH (09:14)
[2016-06-02] MEDS: CHLORTHALIDONE 25 MG TABLET PO SCH (11:14)
== END 2016-06-02 14:42 | disposition home or self-care (01) | DRG 195 ==
LOC: JER 07:32 → JERBED 10:36 → J4S 12:25 → OBSVTOIN 15:25 → J4S 22:19
PROVIDERS: ADMIT Student in an Organized Health Care Education/Training Program; ATTEND Student in an Organized Health Care Education/Training Program
DX: J18.9 Pneumonia, unspecified organism (principal); I10 Essential (primary) hypertension; E78.5 Hyperlipidemia, unspecified; I25.10 Atherosclerotic heart disease of native coronary artery without angina pectoris; Z87.891 Personal history of nicotine dependence; Z79.4 Long term (current) use of insulin; E66.9 Obesity, unspecified; Z68.35 Body mass index [BMI] 35.0-35.9, adult; R09.82 Postnasal drip; E11.40 Type 2 diabetes mellitus with diabetic neuropathy, unspecified
CPT/HCPCS: 36415; 71010-TC; 71020-TC; 80053; 80061; 81003; 81015; 82550; 83036; 83605; 83721; 83735; 83880; 84100; 84484; 85025; 85027; 87040; 87254; 87804; 90732; 93005; 93010; 93306-TC; 99282-25; G0009; G0378

== ENCOUNTER 2016-08-19 18:22 | Emergency (ER) | payer BC, OTHER ==
[2016-08-19 18:55] VITALS: BMI 35.2
[2016-08-19] MEDS ORDERED: SODIUM CHLORIDE 1,000 ML IV SCH (19:30)
[2016-08-19] MEDS ORDERED: ONDANSETRON 4 MG/2 ML VIAL IVPUSH ONE (19:50)
[2016-08-19] MEDS ORDERED: HYDROmorphone HCL CARPU-JECT 1 MG/1 ML DISP.SYRIN IVPUSH ONE (19:50)
[2016-08-19] MEDS ORDERED: LORazepam 1 MG TABLET PO ONE (19:50)
[2016-08-19 20:03] LABS: BASOPHIL 0.7 % (0-2.0); EOSINOPHIL 1.2 % (0-4.5); MCH 24.9 pg (25.7-33.7); MCHC 32.4 g/dl (32.0-36.0); MEAN PLT VOLUME 9.6 fl (7.5-11.1); NEUTROPHILS 68.7 % (42.8-82.8); PLATELET COUNT 258 K/MM3 (134-434); RDW 15.4 % (11.6-15.6); WHITE BLOOD COUNT 11.6 K/mm3 (4.0-10.0)
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
[2016-08-19] MEDS ORDERED: HYDROmorphone HCL CARPU-JECT 1 MG/1 ML DISP.SYRIN ONE (20:23)
[2016-08-19] MEDS ORDERED: LORazepam 0.5 MG TABLET ONE (20:23)
[2016-08-19] MEDS ORDERED: ONDANSETRON 4 MG/2 ML VIAL ONE (20:23)
[2016-08-19 20:37] LABS: ALBUMIN 3.8 g/dl (3.4-5.0); ANION GAP 7 (8-16); BILIRUBIN,TOTAL 0.3 mg/dL (0.2-1.0); CALCIUM 8.8 mg/dL (8.5-10.1); CO2 31 mmol/L (21-32); CREATININE 0.5 mg/dL (0.55-1.02); GLUCOSE,RANDOM 75 mg/dL (74-106); MAGNESIUM 2.2 mg/dL (1.8-2.4); PHOSPHOROUS 3.4 mg/dL (2.5-4.9); SGOT/AST 16 U/L (15-37); SGPT/ALT 31 U/L (12-78)
[2016-08-19 20:38] LABS: ALK PHOS 100 U/L (45-117); TROPONIN I < 0.02 ng/ml (0.00-0.05)
[2016-08-19 23:38] VITALS: BP 169/85; PULSE 85; TEMP 98.1
--- NOTE | 2016-08-21 08:19 | EKG ---
Test Reason : Blood Pressure : / mmHG Vent. Rate : 082 BPM Atrial Rate : 082 BPM P-R Int : 118 ms QRS Dur : 092 ms QT Int : 406 ms P-R-T Axes : 074 052 -69 degrees QTc Int : 474 ms NORMAL SINUS RHYTHM T WAVE ABNORMALITY, CONSIDER INFEROLATERAL ISCHEMIA PROLONGED QT ABNORMAL ECG WHEN COMPARED WITH ECG OF 30-MAY-2016 08:15, T WAVE VARIATION Confirmed by TARUN LOAIZA MD ([id number]) on 08/21/2016 8:19:32 AM Referred By: Confirmed By:TARUN LOAIZA MD
== END 2016-08-19 23:38 | disposition home or self-care (01) ==
LOC: JER 18:22 → JERFT 18:22 → JER 23:38
PROC: 3E0337Z Introduction of Electrolytic and Water Balance Substance into Peripheral Vein, Percutaneous Approach (ICD-10-PCS; principal; 2016-08-19)
PROC: 3E033NZ Introduction of Analgesics, Hypnotics, Sedatives into Peripheral Vein, Percutaneous Approach (ICD-10-PCS; 2016-08-19)
PROC: 3E033GC Introduction of Other Therapeutic Substance into Peripheral Vein, Percutaneous Approach (ICD-10-PCS; 2016-08-19)
DX: S13.4XXA Sprain of ligaments of cervical spine, initial encounter (principal); S16.1XXA Strain of muscle, fascia and tendon at neck level, initial encounter; V79.49XA Driver of bus injured in collision with other motor vehicles in traffic accident, initial encounter; Y92.414 Local residential or business street as the place of occurrence of the external cause; Y93.89 Activity, other specified; Y99.0 Civilian activity done for income or pay; I10 Essential (primary) hypertension; E11.9 Type 2 diabetes mellitus without complications; Z79.4 Long term (current) use of insulin; E78.5 Hyperlipidemia, unspecified; I25.10 Atherosclerotic heart disease of native coronary artery without angina pectoris
CPT/HCPCS: 36415; 71010-TC; 72050-TC; 72070-TC; 80053; 82550; 83690; 83735; 84100; 84484; 85025; 93005; 93010; 99283-25

== ENCOUNTER 2018-01-14 17:12 | Emergency (ER) | payer BC, OTHER ==
[2018-01-14 17:16] VITALS: BMI 33.5
--- NOTE | 2018-01-14 17:25 | PDOC ---
Rapid Medical Evaluation Chief Complaint: Pain Time Seen by Provider: 01/14/18 17:19 Medical Evaluation: Allergies Allergy/AdvReac Type Severity Reaction Status Date / Time No Known Allergies Allergy Verified 01/14/18 17:16 Vital Signs Temp Pulse Resp BP Pulse Ox 98.1 F 74 18 144/78 98 01/14/18 17:14 01/14/18 17:14 01/14/18 17:14 01/14/18 17:14 01/14/18 17:14 01/14/18 17:24 I have performed a brief in-person evaluation of this patient. The patient presents with a chief complaint of:lower abd pain w/ nausea, sent to ER for CT per pt. H/o HTN, DM Pertinent physical exam findings:lower abd ttp I have ordered the following:labs/ua The patient will proceed to the ED for further evaluation. Discharge Disposition - Diagnosis Lower abdominal pain - Discharge Dispostion Last Admission D/C Date: 06/02/16 - Referrals Referrals: Endy Rob [Primary Care Provider] - - Patient Instructions - Post Discharge Activity
[2018-01-14 19:06] LABS: BASO % 0.6 % (0-2.0); EOS % 1.9 % (0-4.5); HEMOGLOBIN 12.4 GM/dL (10.7-15.3); LYMPH % 27.5 % (8-40); MCH 26.7 pg (25.7-33.7); MCHC 33.4 g/dl (32.0-36.0); MEAN CELL VOLUME 80.1 fl (80-96); MEAN PLT VOLUME 9.9 fl (7.5-11.1); MONO % 5.8 % (3.8-10.2); NEUT % 64.2 % (42.8-82.8); PLATELET COUNT 275 K/MM3 (134-434); RBC 4.62 M/mm3 (3.60-5.2); RDW 14.8 % (11.6-15.6); WHITE BLOOD COUNT 10.9 K/mm3 (4.0-10.0)
[2018-01-14 19:12] LABS: URINE APPEARANCE CLEAR; URINE BILIRUBIN NEGATIVE (<2.0 mg/dL); URINE COLOR STRAW; URINE GLUCOSE (UA) NEGATIVE (NEGATIVE); URINE KETONE NEGATIVE (NEGATIVE); URINE LEUK ESTERASE NEGATIVE (NEGATIVE); URINE NITRITE NEGATIVE (NEGATIVE); URINE PROTEIN NEGATIVE (NEGATIVE); URINE UROBILINOGEN NEGATIVE mg/dL (0.2-1.0)
[2018-01-14 19:30] LABS: ALBUMIN 3.9 g/dl (3.4-5.0); ANION GAP 8 MMOL/L (8-16); BILIRUBIN,TOTAL 0.4 mg/dL (0.2-1); BLOOD UREA NITROGEN 18 mg/dL (7-18); CALCIUM 9.9 mg/dL (8.5-10.1); CHLORIDE 104 mmol/L (98-107); CO2 29 mmol/L (21-32); CREATININE 0.6 mg/dL (0.55-1.3); GLUCOSE,RANDOM 151 mg/dL (74-106); POTASSIUM 4.6 mmol/L (3.5-5.1); SGOT/AST 20 U/L (15-37); SGPT/ALT 39 U/L (13-61); SODIUM 141 mmol/L (136-145)
[2018-01-14 19:31] LABS: ALK PHOS 85 U/L (45-117); TOT PROT 7.9 g/dl (6.4-8.2)
--- NOTE | 2018-01-14 19:48 | PDOC ---
History of Present Illness - General History Source: Patient, Old Records Exam Limitations: No Limitations - History of Present Illness Initial Comments: 01/14/18 20:18 The patient is a 62 year old female, with a significant past medical history of HTN, HLD, diabetes, ASHD and cardiac cath, who presents to the ED complaining of abdominal pain for the past week. She also states that nausea is associated with her chief complaint. She describes her abdominal pain as ranging from mild to moderate, without radiation. Localized in suprapubic region. She denies any modifying factors. She notes that she has been having normal bowel movements. She reports that the last time she ate was this afternoon without any complications. The patient denies chest pain, shortness of breath, headache and dizziness. Denies fever, chills, vomiting, diarrhea or constipation. Denies dysuria, frequency, urgency and hematuria. Allergies: None Past surgical history: Right ankle surgery Social History: Social Alcohol use. No tobacco or drug use reported GI: Dr. Joselo Paul <Reza Murcia - Last Filed: 01/14/18 20:25> <Jesús Flores - Last Filed: 01/15/18 00:46> - General Chief Complaint: Pain Stated Complaint: PCP SENT Time Seen by Provider: 01/14/18 17:19 Past History <Reza Murcia - Last Filed: 01/14/18 20:25> - Past Medical History Anemia: No Asthma: No Cancer: No Cardiac Disorders: Yes (ASHD, BASED ON CARDIAC CATH) CVA: No COPD: No CHF: No Dementia: No Diabetes: Yes GI Disorders: No Disorders: No HTN: Yes Hypercholesterolemia: Yes Liver Disease: No Seizures: No Thyroid Disease: No - Surgical History Appendectomy: Yes Orthopedic Surgery: Yes (RIGHT ANKLE FRACTURE SURGERY) - Immunization History Immunization Up to Date: Yes (no flu) - Suicide/Smoking/Psychosocial Hx Smoking History: Never smoked Have you smoked in the past 12 months: No If you are a former smoker, when did you quit?: 2000 Hx Alcohol Use: No Drug/Substance Use Hx: No Substance Use Type: None Hx Substance Use Treatment: No <Jesús Flores - Last Filed: 01/15/18 00:46> - Past Medical History Allergies/Adverse Reactions: Allergies Allergy/AdvReac Type Severity Reaction Status Date / Time No Known Allergies Allergy Verified 01/14/18 17:16 Home Medications: Ambulatory Orders Insulin Glargine,Hum.rec.anlog [Toujeo Solostar] 110 unit SQ DAILY 08/17/15 Aspirin [ASA -] 81 mg PO DAILY 10/06/17 Ezetimibe [Zetia] 10 mg PO DAILY 10/06/17 Spironolactone [Aldactone] 25 mg PO DAILY 10/06/17 Clonidine HCl 0.2 mg PO BID 01/14/18 Insulin Aspart Prot/Insuln Asp [Novolog Mix 70-30 Flexpen Syrn] 45 unit SQ BID 01/14/18 Metformin HCl [Glucophage] 500 mg PO BID 01/14/18 Pitavastatin Calcium [Livalo] 4 mg PO DAILY 01/14/18 Rosuvastatin Calcium 10 mg PO DAILY 01/14/18 Semaglutide [Ozempic] 1.5 mg SQ WEEKLY 01/14/18 levoFLOXacin [Levaquin -] 500 mg PO DAILY #20 tablet 01/15/18 metroNIDAZOLE [Flagyl -] 500 mg PO TID #30 tablet 01/15/18 Review of Systems - Review of Systems Able to Perform ROS?: Yes Comments:: 01/14/18 20:16 CONSTITUTIONAL: No fever, no chills, no fatigue EYES: No visual changes ENT: No ear pain, no sore throat CARDIOVASCULAR: No chest pain, no palpitations RESPIRATORY: No cough, no SOB GI: (+) Nausea and abdominal pain. No vomiting, no constipation, no diarrhea GENITOURINARY: No dysuria, no frequency, no hematuria MUSKULOSKELETAL: No backpain, no joint pain, no myalgias SKIN: No rash NEURO: No headache <Reza Murcia - Last Filed: 01/14/18 20:25> *Physical Exam - Vital Signs Last Vital Signs Temp Pulse Resp BP Pulse Ox 98.1 F 74 18 144/78 98 01/14/18 17:14 01/14/18 17:14 01/14/18 17:14 01/14/18 17:14 01/14/18 17:14 - Physical Exam Comments: 01/14/18 20:18 CONSTITUTIONAL: Well-appearing; well-nourished; in no apparent distress HEAD: Normocephalic; atraumatic EYES: PERRL; EOM intact ENMT: External appears normal; normal oropharynx NECK: Supple; non-tender; no cervical lymphadenopathy CARD: Normal S1, S2; no murmurs, rubs, or gallops RESP: Normal chest excursion with respiration; breath sounds clear and equal bilaterally; no wheezes, rhonchi, or rales ABD: (+) Suprapubic tenderness to palpation. Left lower quadrant tenderness to palpation. Soft, non-distended; no palpable organomegaly, no palpable hernias. No guarding or rebound. EXT: Normal ROM in all four extremities; non-tender to palpation; distal pulses intact SKIN: Warm, dry, no rash NEURO: No focal neurological deficiencies. <Reza Murcia - Last Filed: 01/14/18 20:25> - Vital Signs Last Vital Signs Temp Pulse Resp BP Pulse Ox 98.1 F 74 18 144/78 98 01/14/18 17:14 01/14/18 17:14 01/14/18 17:14 01/14/18 17:14 01/14/18 17:14 <Jesús Flores - Last Filed: 01/15/18 00:46> ED Treatment Course - LABORATORY CBC & Chemistry Diagram: 01/14/18 17:56 01/14/18 17:56 - ADDITIONAL ORDERS Additional order review: Laboratory Results 01/14/18 01/14/18 01/14/18 19:00 17:56 17:56 Sodium 141 Potassium 4.6 Chloride 104 Carbon Dioxide 29 Anion Gap 8 BUN 18 Creatinine 0.6 Creat Clearance w eGFR > 60 Random Glucose 151 H Calcium 9.9 Total Bilirubin 0.4 AST 20 ALT 39 Alkaline Phosphatase 85 Total Protein 7.9 Albumin 3.9 Lipase 203 Urine Color Straw Urine Appearance Clear Urine pH 6.0 Ur Specific [place] 1.008 Urine Protein Negative Urine Glucose (UA) Negative Urine Ketones Negative Urine Blood Negative Urine Nitrite Negative Urine Bilirubin Negative Urine Urobilinogen Negative Ur Leukocyte Esterase Negative 01/14/18 17:56 RBC 4.62 MCV 80.1 MCHC 33.4 RDW 14.8 MPV 9.9 Neutrophils % 64.2 D Lymphocytes % 27.5 D Monocytes % 5.8 Eosinophils % 1.9 D Basophils % 0.6 <Reza Murcia - Last Filed: 01/14/18 20:25> - LABORATORY CBC & Chemistry Diagram: 01/14/18 17:56 01/14/18 17:56 - ADDITIONAL ORDERS Additional order review: Laboratory Results 01/14/18 01/14/18 01/14/18 19:00 17:56 17:56 Sodium 141 Potassium 4.6 Chloride 104 Carbon Dioxide 29 Anion Gap 8 BUN 18 Creatinine 0.6 Creat Clearance w eGFR > 60 Random Glucose 151 H Calcium 9.9 Total Bilirubin 0.4 AST 20 ALT 39 Alkaline Phosphatase 85 Total Protein 7.9 Albumin 3.9 Lipase 203 Urine Color Straw Urine Appearance Clear Urine pH 6.0 Ur Specific [place] 1.008 Urine Protein Negative Urine Glucose (UA) Negative Urine Ketones Negative Urine Blood Negative Urine Nitrite Negative Urine Bilirubin Negative Urine Urobilinogen Negative Ur Leukocyte Esterase Negative 01/14/18 17:56 RBC 4.62 MCV 80.1 MCHC 33.4 RDW 14.8 MPV 9.9 Neutrophils % 64.2 D Lymphocytes % 27.5 D Monocytes % 5.8 Eosinophils % 1.9 D Basophils % 0.6 - RADIOLOGY Radiology Studies Ordered: Category Date Time Status ABDOMEN & PELVIS CT W/O CONTR [CT] Stat CT Scan 01/14/18 18:33 Ordered <Jesús Flores - Last Filed: 01/15/18 00:46> Medical Decision Making - Medical Decision Making 01/15/18 00:36 Patient is well-appearing 62-year-old female who presents to the ER with several days of mild lower abdominal pain. In the ER, patient is awake and alert , in no distress. Patient is afebrile with stable vital signs. CBC reveals no evidence of leukocytosis. CMP is within normal limit. Urinalysis reveals no evidence pyuria. CT that and pelvis with by mouth contrast reveals diverticulosis but no evidence of diverticulitis. Gallstones are noted without evidence of acute diverticulitis. On reassessment, patient is with minimal suprapubic and left lower pelvic discomfort without guarding or rebound. I discussed the case with Dr. Youssef covering for Dr. Paul. Patient's symptoms may be related to mild diverticulitis which is not appreciated on CT. I discussed the findings with the patient. We'll administer Levaquin and Flagyl in the ED and will discharge patient with by mouth antibiotics for suspected mild diverticulitis with outpatient follow-up in 48-72 hours. <Jesús Flores - Last Filed: 01/15/18 00:46> *DC/Admit/Observation/Transfer - Attestations Scribe Attestion: 01/14/18 20:18 Documentation prepared by Reza Murcia, acting as medical accounting clerk for Jesús Flores MD <Reza Murcia - Last Filed: 01/14/18 20:25> - Attestations Physician Attestion: 01/15/18 00:36 The documentation was prepared by the scribe under my direct supervision. I have reviewed the documentation which correctly represents the findings, medical decision-making and critical action taken by me. <Jesús Flores - Last Filed: 01/15/18 00:46> Diagnosis at time of Disposition: Diverticulitis, Lower abdominal pain - Discharge Dispostion Disposition: HOME Condition at time of disposition: Stable - Referrals Referrals: Joselo Paul MD [Staff Physician] - - Patient Instructions Printed Discharge Instructions: DI for Diverticulitis, DI for Abdominal Pain- Adult Additional Instructions: Stop taking Levaquin immediately if you develop lightheadedness, dizziness, or pain at your Achilles tendon. - Post Discharge Activity
[2018-01-15 01:18] VITALS: BP 135/76; PULSE 78; TEMP 98.2
== END 2018-01-15 01:00 | disposition home or self-care (01) ==
LOC: JER 17:12
DX: K57.92 Diverticulitis of intestine, part unspecified, without perforation or abscess without bleeding (principal); R13.0 Aphagia
CPT/HCPCS: 36415; 74176-TC; 80053; 81003; 83690; 85025; 99283-25